=== PATIENT | female | born 1985 | race Two or more races ===

== ENCOUNTER 2016-09-04 06:31 | Inpatient (IN) | payer OTHER ==
[~2016-09-04] VITALS: Ht 149.9 cm; Wt 56.7 kg
[2016-09-04] MEDS ORDERED: IBUPROFEN 800 MG TABLET. PO PRN (09:30)
[2016-09-04] MEDS ORDERED: 0.9 % SODIUM CHLORIDE 10 ML DISP.SYRIN. IV PRN ×2 (09:30→17:30)
[2016-09-04] MEDS ORDERED: BUPIVACAINE MPF 0.25% 10 ML VIAL. IJ ONE (09:30)
[2016-09-04] MEDS ORDERED: TERBUTALINE 1 MG/ML VIAL. SQ PRN (09:30)
[2016-09-04] MEDS ORDERED: LIDOCAINE 1% PF 30 ML VIAL. INJ PRN (09:30)
[2016-09-04] MEDS ORDERED: FENTANYL PF 100 MCG/2 ML VIAL. IV PRN (09:30)
[2016-09-04] MEDS ORDERED: OXYTOCIN 30 UNIT/500 ML PREMIX 500 ML IV PRN ×3 (09:30→17:30)
[2016-09-04 10:02] LABS: BASO % 0 % (0-3); EOS % 3 % (0-3); HEMATOCRIT 31.7 % (36.0-47.0); HEMOGLOBIN 10.2 g/dL (12.0-15.5); LYMPH # 2.1 x10^3/uL (1.0-4.8); LYMPH % 26 % (24-48); MEAN CORPUSCULAR HEMOGLOBIN 24 pg (25-35); MEAN CORPUSCULAR HGB CONC 32 g/dL (31-37); MEAN CORPUSCULAR VOLUME 76 fL (79-100); MONO % 8 % (0-9); NEUT % 64 % (31-73); PLATELET COUNT 241 x10^3/uL (140-400); RED BLOOD COUNT 4.19 x10^6/uL (3.50-5.40); RED CELL DISTRIBUTION WIDTH 13.2 % (11.5-14.5); WHITE BLOOD COUNT 8.2 x10^3/uL (4.0-11.0)
[2016-09-04 10:17] LABS: ALBUMIN 2.5 g/dL (3.4-5.0); ALBUMIN/GLOBULIN RATIO 0.6 (1.0-1.7); CALCIUM 8.6 mg/dL (8.5-10.1); CREATININE 0.8 mg/dL (0.6-1.0); DIRECT BILIRUBIN 0.1 mg/dL (0.0-0.2); GFR 82.6; POTASSIUM 4.1 mmol/L (3.5-5.1); TOTAL BILIRUBIN 0.4 mg/dL (0.2-1.0); URIC ACID 5.7 mg/dL (2.6-6.0)
[2016-09-04] MEDS: IV RINGERS,LACTATED 1000ML 1,000 ML IV SCH ×2 (13:16→17:23)
[2016-09-04] MEDS ORDERED: ROPIVacaine 0.2% IN 0.9%NACL PF 40 MG/20 ML DISP.SYRIN. ONE ×2 (13:35→14:30)
[2016-09-04] MEDS ORDERED: L&D EPIDURAL CASSETTE 100 ML EP ONE (13:35)
[2016-09-04] MEDS ORDERED: NALOXONE 0.4 MG/ML VIAL. IV PRN (14:45)
[2016-09-04] MEDS ORDERED: L&D EPIDURAL CASSETTE 100 ML EP PRN (14:45)
[2016-09-04] MEDS ORDERED: ROPIVacaine 0.2% PF 10 ML VIAL. EPI ONE (14:45)
[2016-09-04] MEDS ORDERED: ONDANSETRON PF 4 MG/2 ML VIAL. IV PRN (14:45)
[2016-09-04] MEDS ORDERED: EPHEDRINE PF IN SALINE 50 MG/5 ML DISP.SYRIN. IV PRN (14:45)
[2016-09-04] MEDS ORDERED: FENTANYL PF 100 MCG/2 ML VIAL. EPI ONE (14:45)
[2016-09-04] MEDS ORDERED: HYDROCODONE/APAP 5/325MG TABLET. PO PRN (17:30)
[2016-09-04] MEDS ORDERED: ZOLPIDEM 5 MG TABLET. PO PRN (17:30)
[2016-09-04] MEDS ORDERED: MAG HYDROX/ALUMINUM HYD/SIMETH 30 ML ORAL.SUSP PO PRN (17:30)
[2016-09-04] MEDS ORDERED: DIPHENHYDRAMINE HCL 25 MG CAPSULE PO PRN (17:30)
[2016-09-04] MEDS ORDERED: PHENYLEPH/MINERAL OIL/PETROLAT RECTAL OINTMENT 28GM TUBE. RC PRN (17:30)
[2016-09-04] MEDS ORDERED: HYDROCORTISONE 1% TOPICAL OINTMENT 30GM TUBE. TP PRN (17:30)
[2016-09-04] MEDS ORDERED: ACETAMINOPHEN 325 MG TABLET. PO PRN ×2 (17:30→17:45)
[2016-09-04] MEDS ORDERED: MAGNESIUM HYDROXIDE 2,400 MG/30 ML ORAL.SUSP. PO PRN (17:30)
[2016-09-04] MEDS ORDERED: BENZOCAINE 20% TOPICAL AEROSOL SPRAY 57GM CAN. TP PRN (17:30)
[2016-09-04] MEDS ORDERED: SIMETHICONE 80 MG TAB.CHEW PO PRN (17:30)
--- NOTE | 2016-09-04 17:59 | PDOC1 ---
OB - History Hx of Present Ultrasounds: No ultrasounds Obstetrical Complications: None Medical Complications: None Past Family/Social History * Past Medical, Surgical, Family and Obstetric Histories reviewed from chart. Blood Type: O+ Rubella: Immune RPR/VDRL: Negative GBS Status: Negative HBsAG: Negative OB - Chief Complaint & HPI Date of Admission: Date of Admission: Sep 04, 2016 at 06:31 Chief Complaint/History : 3 Para: 2 EDC: Sep 04, 2016 Reason for admission: induction of labor Admission Nurse Assessment Rev: Yes Problems: OB - Admission Exam Physical Exam Vitals: VS - Last 72 Hours, by Label Date Time Temp Pulse Resp B/P Pulse Ox O2 Delivery O2 Flow Rate FiO2 09/04/16 16:13 18 100 HEENT: Normal, Nasal Mucosa Normal, Oropharynx Normal, Moist Membranes, Fontanelles Normal Heart: Regular Rate Lungs: Clear, Equal Abdomen: Gravid Extremities: Normal Pulses, No tenderness or swelling Reflexes: Normal Cervical Dilatation: 1cm Effacement: 50% Station: Ballotable Membranes: Intact Amniotic Fluid: Clear Heart Rate: Normal Accelerations: Accelerations Present Contractions on Admission: >10 Minutes Apart Intensity: Mild Assessment/Plan Assessment/Plan TIUP Induction ACSVD ANGELO DELATORRE MD Sep 04, 2016 17:59
--- NOTE | 2016-09-04 18:45 | PDOC ---
VAGINAL DELIVERY DATE DATE: 09/04/16 TIME: 18:42 : 3 Para: 2 EDC: Sep 09, 2016 VAGINAL DELIVERY: VTX PLACENTA: Spontaneous SEX: Male WEIGHT 7/7 Nuchal Cord: Yes, Times 1, Loose Amniotic Fluid: Clear PAIN: Epidural EPISIOTOMY: No EXTENSION: No EBL 400cc COMPLICATIONS None CONDITION Stable Signs of Intrauterine Infectio: None Shoulder Dystocia: No DIAGNOSIS TIUP del Problems: ANGELO DELATORRE MD Sep 04, 2016 18:45
[2016-09-04] MEDS: IBUPROFEN 800 MG TABLET. PO SCH ×2 (21:35→22:00)
[2016-09-04 22:45] VITALS: BP 113/75
[2016-09-05] MEDS: IV RINGERS,LACTATED 1000ML 1,000 ML IV SCH (01:23)
[2016-09-05 05:25] VITALS: BP 115/67
[2016-09-05 05:59] VITALS: BP 115/67
[2016-09-05] MEDS: IBUPROFEN 800 MG TABLET. PO SCH ×3 (06:00→19:13)
[2016-09-05] MEDS: FERROUS SULFATE 325 MG TABLET. PO SCH ×2 (09:12→19:13)
[2016-09-05 10:15] VITALS: BP 130/80
--- NOTE | 2016-09-05 13:36 | PDOC ---
OB Progress Note Date of Service 09/05/16 Time of Evaluation 1335 Problem List Problems Medical Problems: (1) Status: Acute Notes Pt. feeling well. Pain controlled. Bottle feeding. Lochia minimal. Lab Laboratory Tests Test 09/04/16 09:30 09/05/16 03:58 White Blood Count 8.2x10^3/uL (4.0-11.0) Red Blood Count 4.19x10^6/uL (3.50-5.40) Hemoglobin 10.2g/dL (12.0-15.5) Hematocrit 31.7% (36.0-47.0) 26.3% (36.0-47.0) Mean Corpuscular Volume 76fL (79-100) Mean Corpuscular Hemoglobin 24pg (25-35) Mean Corpuscular Hemoglobin Concent 32g/dL (31-37) Red Cell Distribution Width 13.2% (11.5-14.5) Platelet Count 241x10^3/uL (140-400) Neutrophils (%) (Auto) 64% (31-73) Lymphocytes (%) (Auto) 26% (24-48) Monocytes (%) (Auto) 8% (0-9) Eosinophils (%) (Auto) 3% (0-3) Basophils (%) (Auto) 0% (0-3) Neutrophils # (Auto) 5.2x10^3uL (1.8-7.7) Lymphocytes # (Auto) 2.1x10^3/uL (1.0-4.8) Monocytes # (Auto) 0.6x10^3/uL (0.0-1.1) Eosinophils # (Auto) 0.2x10^3/uL (0.0-0.7) Basophils # (Auto) 0.0x10^3/uL (0.0-0.2) Sodium Level 140mmol/L (136-145) Potassium Level 4.1mmol/L (3.5-5.1) Chloride Level 106mmol/L (98-107) Carbon Dioxide Level 22mmol/L (21-32) Anion Gap 12 (6-14) Blood Urea Nitrogen 8mg/dL (7-20) Creatinine 0.8mg/dL (0.6-1.0) Estimated GFR (Cockcroft-Gault) 82.6 BUN/Creatinine Ratio 10 (6-20) Glucose Level 82mg/dL (70-99) Uric Acid 5.7mg/dL (2.6-6.0) Calcium Level 8.6mg/dL (8.5-10.1) Total Bilirubin 0.4mg/dL (0.2-1.0) Direct Bilirubin 0.1mg/dL (0.0-0.2) Aspartate Amino Transf (AST/SGOT) 24U/L (15-37) Alanine Aminotransferase (ALT/SGPT) 18U/L (14-59) Alkaline Phosphatase 276U/L (46-116) Lactate Dehydrogenase 168U/L (81-234) Total Protein 7.0g/dL (6.4-8.2) Albumin 2.5g/dL (3.4-5.0) Albumin/Globulin Ratio 0.6 (1.0-1.7) RPR Titer Additional Testing Non reactive (Non Reactive) Laboratory Tests Test 09/05/16 03:58 Hematocrit 26.3% (36.0-47.0) Medications Current Medications Sodium Chloride 3 ml 3 ml QSHIFT PRN IV AFTER MEDS AND BLOOD DRAWS; Start 09/04 at 09:30 Lactated Ringer's (Iv Lactated Ringers) 1,000 ml @ 125 mls/hr Q8H IV Last administered on 09/04/16 13:16; Start 09/04/16 at 09:23; Stop 09/05/16 at 04:30 ; Status DC Fentanyl Citrate (Fentanyl 2ml Vial) 100 mcg PRN Q20MIN PRN IV Labor pain; Start 09/04/16 at 09:30 Terbutaline Sulfate (Brethine) 0.25 mg 1X PRN PRN SQ SEE COMMENTS; Start at 09:30; Stop 09/05/16 at 09:29; Status DC Lidocaine HCl 30 ml 30 ml 1X PRN PRN INJ SEE COMMENTS; Start 09/04/16 at 09:30 ; Stop 09/06/16 at 09:29 Oxytocin/Sodium Chloride 500 ml @ 0 mls/hr CONT PRN IV SEE I/O RECORD Last administered on 09/04/16 13:16; Start 09/04/16 at 09:30 Oxytocin/Sodium Chloride (Oxytocin Premix Infusion) 500 ml @ 0 mls/hr CONT PRN PRN IV Post delivery bleeding; Start 09/04/16 at 09:30 Ibuprofen (Motrin) 800 mg PRN Q6HRS PRN PO PAIN; Start 09/04/16 at 09:30 Bupivacaine HCl 10 ml 10 ml 1X ONCE IJ ; Start 09/04/16 at 09:30; Stop at 09:58; Status DC Ropivacaine/ Fentanyl/NS (Txrdyjow-Oumgo-AB 3 Mcg-0.1%) 100 ml @ As Directed STK-MED ONCE EP ; Start 09/04/16 at 13:35; Stop 09/04/16 at 13:36; Status DC Ropivacaine 40 mg STK-MED ONCE .ROUTE ; Start 09/04/16 at 13:35; Stop 09/04/16 at 13:36; Status DC Ephedrine Sulfate 10 mg PRN Q2MIN PRN IV IF SBP<90; Start 09/04/16 at 14:45 Naloxone HCl (Narcan) 0.04 mg PRN Q1MIN PRN IV SEE COMMENTS; Start 09/04/16 at 14:45 Fentanyl Citrate 100 mcg 100 mcg 1X ONCE EPI ; Start 09/04/16 at 14:45; Stop at 14:46; Status DC Ropivacaine/ Fentanyl/NS (Odenpqso-Pamrv-UX 3 Mcg-0.1%) 100 ml @ 14 mls/hr CONT PRN EP PAIN Last administered on 09/04/16t 16:13; Start 09/04/16 at 14:45 Ondansetron HCl (Zofran) 4 mg PRN Q6HRS PRN IV NAUSEA/VOMITING; Start 09/04/16 at 14:45 Ropivacaine (Naropin 0.2%) 20 ml 1X ONCE EPI ; Start 09/04/16 at 14:45; Stop at 14:46; Status DC Sodium Chloride 10 ml 10 ml QSHIFT PRN IV AFTER MEDS AND BLOOD DRAWS; Start 03/13 at 17:30 Oxytocin/Sodium Chloride (Oxytocin Premix Infusion) 500 ml @ 62.5 mls/hr CONT PRN IV SEE I/O RECORD; Start 09/04/16 at 17:30; Stop 09/05/16 at 01:29; Status DC Acetaminophen (Tylenol) 650 mg PRN Q6HRS PRN PO MILD PAIN / TEMP; Start at 17:30; Stop 09/04/16 at 17:42; Status DC Ibuprofen (Motrin) 800 mg Q8HRS PO Last administered on 09/05/16 09:12; Start 09/04/16 at 17:00 Magnesium Hydroxide (Milk Of Magnesia) 2,400 mg PRN DAILY PRN PO CONSTIPATION; Start 09/04/16 at 17:30 Al Hydroxide/Mg Hydroxide (Mylanta Plus Xs) 30 ml PRN Q4HRS PRN PO HEARTBURN / GAS; Start 09/04/16 at 17:30 Simethicone (Gas-X) 80 mg PRN AFTMEALHC PRN PO GAS / BLOATING; Start 09/04/16 at 17:30 Diphenhydramine HCl (Benadryl) 25 mg PRN Q6HRS PRN PO ITCHING; Start 09/04/16 at 17:30 Benzocaine (Americaine) 1 spray PRN QID PRN TP TOPICAL PAIN Last administered on 09/04/16 21:36; Start 09/04/16 at 17:30 Phenyleph/Shark Oil/Min Oil/Petrol (Preparation H) 1 angel PRN QID PRN RC RECTAL PAIN; Start 09/04/16 at 17:30 Hydrocortisone (Cortaid) 1 angel PRN QID PRN TP RECTAL PAIN; Start 09/04/16 at 17 :30 Ferrous Sulfate (Feosol) 325 mg BIDWMEALS PO Last administered on 09/05/16 09: 12; Start 09/05/16 at 08:00 Zolpidem Tartrate (Ambien) 5 mg PRN QHS PRN PO INSOMNIA, MAY REPEAT X1; Start 09/04/16 at 17:30 Info (Do NOT chart on this placeholder) 1 ea 1X PRN PRN MC SEE COMMENTS; Start 09/04/16 at 17:30 Acetaminophen/ Hydrocodone Bitart (Lortab 5/325) 1 tab PRN Q4HRS PRN PO PAIN; Start 09/04/16 at 17:30 Acetaminophen (Tylenol) 650 mg PRN Q6HRS PRN PO MILD PAIN / TEMP; Start at 17:45 Ropivacaine 40 mg STK-MED ONCE .ROUTE ; Start 09/04/16 at 14:30; Stop 09/05/16 at 09:06; Status DC Exam Abd: soft, non tender, fundus firm Assessment PPD#1 s/p Plan of Care: Continue current Tx, Mgmt JODI HARPER Jr, MD Sep 05, 2016 13:36
[2016-09-05 14:15] VITALS: BP 134/87
[2016-09-05 17:16] VITALS: BP 130/86
[2016-09-05 23:08] VITALS: BP 120/77
[2016-09-06 05:59] VITALS: BP 126/88
[2016-09-06 10:28] VITALS: BP 134/85
--- NOTE | 2016-09-06 10:53 | PDOC3 ---
OB DISCHARGE SUMMARY DATE OF ADMISSION: 09/04/16 DATE OF DISCHARGE: 09/06/16 REASON FOR ADMISSION: Induction of labor PROCEDURES: None INTRAPARTUM PROCEDURES: Spontanous Vag Deliv PROCEDURES: None OPERATIONS: None PROBLEM LIST AT DISCHARGE Problems Medical Problems: (1) Status: Acute DISCHARGE DIAGNOSIS: Term Delivered DISCHARGE INFORMATION: Activity, Diet HOSPITAL COURSE Unremarkable CONDITION AT DISCHARGE Stable ANGELO DELATORRE MD Sep 06, 2016 10:53
[2016-09-06] MEDS: FERROUS SULFATE 325 MG TABLET. PO SCH (11:56)
[2016-09-06] MEDS: IBUPROFEN 800 MG TABLET. PO SCH (11:57)
[2016-09-06 14:55] VITALS: BP 114/73
[2016-09-06] MEDS ORDERED: IBUP200T43 PO (15:40)
== END 2016-09-06 15:00 | disposition home or self-care (01) | DRG 775 ==
LOC: 3 SO LND 06:31
PROVIDERS: ADMIT Specialist; ATTEND Specialist
PROC: 10E0XZZ Delivery of Products of Conception, External Approach (ICD-10-PCS; principal; 2016-09-05)
PROC: 3E0S3CZ (ICD-10-PCS; 2016-09-05)
PROC: 00HU33Z Insertion of Infusion Device into Spinal Canal, Percutaneous Approach (ICD-10-PCS; 2016-09-05)
DX: O80 Encounter for full-term uncomplicated delivery (principal); Z37.0 Single live birth; Z3A.00 Weeks of gestation of pregnancy not specified
CPT/HCPCS: 36415; 80053; 82248; 83615; 84550; 85014; 85027; 86593; 86850; 86900; 86901; J2590; J2795; J7120

== ENCOUNTER → 2017-08-28 | Outpatient (CLI) | payer MEDICAID, OTHER | END | disposition home or self-care (01) | LOC: ECHO 13:31 | DX: R01.1 Cardiac murmur, unspecified (principal) | CPT/HCPCS: 93306 ==

== ENCOUNTER 2017-11-18 00:09 | Emergency (ER) | payer MEDICAID ==
[2017-11-18 00:47] LABS: ADD MAN DIFF? NO
[2017-11-18] MEDS: IV NORMAL SALINE 1000ML BAG 1,000 ML IV (00:48)
[2017-11-18 00:49] LABS: BASO % 0 % (0-3); EOS # 0.2 x10^3/uL (0.0-0.7); EOS % 3 % (0-3); HEMATOCRIT 30.9 % (36.0-47.0); HEMOGLOBIN 10.5 g/dL (12.0-15.5); LYMPH % 36 % (24-48); MEAN CORPUSCULAR HEMOGLOBIN 25 pg (25-35); MEAN CORPUSCULAR HGB CONC 34 g/dL (31-37); MEAN CORPUSCULAR VOLUME 73 fL (79-100); MONO # 0.6 x10^3/uL (0.0-1.1); MONO % 7 % (0-9); NEUT # 4.4 x10^3uL (1.8-7.7); NEUT % 54 % (31-73); PLATELET COUNT 224 x10^3/uL (140-400); RED BLOOD COUNT 4.26 x10^6/uL (3.50-5.40); RED CELL DISTRIBUTION WIDTH 14.5 % (11.5-14.5); WHITE BLOOD COUNT 8.1 x10^3/uL (4.0-11.0)
[2017-11-18 00:49] LABS: URINE HCG POC HCG NEGATIVE (Negative)
[2017-11-18 01:06] LABS: ANION GAP 9 (6-14); BLOOD UREA NITROGEN 11 mg/dL (7-20); BUN/CREATININE RATIO 14 (6-20); CALCIUM 8.4 mg/dL (8.5-10.1); CARBON DIOXIDE 22 mmol/L (21-32); CHLORIDE 108 mmol/L (98-107); CREATININE 0.8 mg/dL (0.6-1.0); GFR 82.1; GLUCOSE 160 mg/dL (70-99); POTASSIUM 3.4 mmol/L (3.5-5.1); SODIUM 139 mmol/L (136-145)
[2017-11-18 01:12] LABS: ALBUMIN 3.5 g/dL (3.4-5.0); ALBUMIN/GLOBULIN RATIO 0.7 (1.0-1.7); ALK PHOS 105 U/L (46-116); ALT (SGPT) 27 U/L (14-59); TOTAL BILIRUBIN 0.2 mg/dL (0.2-1.0); TOTAL PROTEIN 8.2 g/dL (6.4-8.2)
[2017-11-18] MEDS: hydrALAZINE 20 MG/ML VIAL. IVP (01:36)
[2017-11-18 02:15] LABS: AST (SGOT) 29 U/L (15-37)
[2017-11-18] MEDS: diphenhydrAMINE 50 MG/ML VIAL IVP (03:22)
[2017-11-18] MEDS: KETOROLAC 30 MG/ML INJ. IV (03:22)
== END 2017-11-18 03:20 | disposition home or self-care (01) ==
LOC: ER 00:09
DX: R42 Dizziness and giddiness (principal); R51 Headache; I10 Essential (primary) hypertension
CPT/HCPCS: 36415; 70450; 80053; 81025; 85025; 93005; 96361; 96374; 99285-25; J0360; J7030

== ENCOUNTER 2018-07-17 17:44 | Emergency (ER) | payer MEDICAID, OTHER ==
[~2018-07-17] VITALS: Ht 152.4 cm; Wt 53.1 kg
[~2018-07-17 17:44] MED LIST: IBUP200T44 PO
[2018-07-17 18:00] VITALS: BP 160/78
[2018-07-17 19:06] LABS: BILIRUBIN,URINE NEGATIVE (NEG); CLARITY,URINE CLEAR; COLOR,URINE YELLOW; NITRITE,URINE NEGATIVE (NEG); PH,URINE 5.5; PROTEIN,URINE NEGATIVE (NEG-TRACE); UROBILINOGEN,URINE 0.2 mg/dL (0.2 mg/dL)
[2018-07-17 19:11] LABS: BACTERIA,URINE FEW /HPF (0-FEW); RBC,URINE 0 /HPF (0-2); SQUAMOUS EPITHELIAL CELL,UR MOD /LPF
--- NOTE | 2018-07-17 19:48 | PHYS DOC ---
Past Medical History Past Medical History: No Pertinent History Past Surgical History: No Surgical History Alcohol Use: None Drug Use: None Adult General Chief Complaint Chief Complaint: BACK PAIN OR INJURY HPI HPI Patient is a 33 year old female who presents to the ER with complaints of right low back pain that increases with movement for the last 2 days. Pt states that she slipped and fell on Sunday but the pain did not begin until Sunday. Pt states that the pain increases with movement. She denies any radiation of the pain to legs. She denies any numbness or tingling in abdomen or lower extremities. She denies any loss of bowel or bladder control. She rates the pain a 10/10 on the pain scale, it is alleviated by nothing and exacerbated by movement. Pt only speaks Faroese and the cytopathologist line was used to converse with patient. 1946- Pt states to prior authorization technician that her abdomen feels like it is burning and she has had a foul smelling white vaginal discharge. Per patient she has had intermittent suprapubic burning for the last year and foul smelling vaginal discharge for 5-6 months. Review of Systems Review of Systems Constitutional: Denies fever or chills [] Respiratory: shortness of breath [] Cardiovascular: No additional information not addressed in HPI [] GI: See HPI : Denies dysuria. increased urinary frequency, or hematuria; see HPI Musculoskeletal: See HPI Neuro: Denies numbness, tingling, or weakness of extremities. Current Medications Current Medications Current Medications Medications (Trade) Dose Ordered Sig/Taty Start Time Stop Time Status Last Admin Dose Admin Azithromycin (Zithromax) 1,000 mg 1X ONCE 07/17/18 20:45 07/17/18 20:46 DC Ceftriaxone Sodium (Rocephin Im) 250 mg 1X ONCE 07/17/18 20:45 07/17/18 20:46 DC Allergies Allergies Allergies Coded Allergies Type Severity Reaction Last Updated Verified No Known Drug Allergies 09/04/16 No Physical Exam Physical Exam Constitutional: Well developed, well nourished, no acute distress, non-toxic appearance. [] HENT: Normocephalic, atraumatic, bilateral external ears normal, oropharynx moist, nose normal. [] Eyes: PERRLA, conjunctiva normal, no discharge. [] Neck: Normal range of motion, no stridor. [] Lungs & Thorax: Respirations even and unlabored, no retractions Pelvic Exam: Surveyor Helper present Yvrose ZIMMER Abdomen: Soft Nontender External Genitalia: Normal Skin Speculum: Normal vaginal mucosa, thick white vaginal discharge, normal cervical discharge, cervix friable Bimanual: No adnexal masses or tenderness, No CMT Skin: Warm, dry, no erythema, no rash. [] Back: No bony tenderness, lumbar paraspinal TTP on the right, no CVA tenderness. [] Extremities: No tenderness, no cyanosis, ROM intact Neurologic: Alert and oriented X 3, normal motor function, normal sensory function, no focal deficits noted. [] Psychologic: Affect normal, judgement normal, mood normal. [] Current Patient Data Vital Signs Vital Signs Date Time Temp Pulse Resp B/P (MAP) Pulse Ox O2 Delivery O2 Flow Rate FiO2 07/17/18 18:00 99.8 88 16 160/78 (105) 99 Room Air 99.8 Lab Values Laboratory Tests Test 07/17/18 18:57 07/17/18 18:58 Urine Collection Type Unknown Urine Color Yellow Urine Clarity Clear Urine pH 5.5 Urine Specific [place] <=1.005 Urine Protein Negative mg/dL (NEG-TRACE) Urine Glucose (UA) Negative mg/dL (NEG) Urine Ketones (Stick) Negative mg/dL (NEG) Urine Blood Negative (NEG) Urine Nitrite Negative (NEG) Urine Bilirubin Negative (NEG) Urine Urobilinogen Dipstick 0.2 mg/dL (0.2 mg/dL) Urine Leukocyte Esterase Negative (NEG) Urine RBC 0 /HPF (0-2) Urine WBC 1-4 /HPF (0-4) Urine Squamous Epithelial Cells Mod /LPF Urine Bacteria Few /HPF (0-FEW) Urine Mucus Slight /LPF POC Urine HCG, Qualitative Hcg negative (Negative) Microbiology 07/17/18 Wet Prep - Final, Complete EKG EKG [] Radiology/Procedures Radiology/Procedures PROCEDURE: LUMBAR SPINE 2-3V Exam : Lumbar spine July 17, 2018. Comparison: None. Indication: Right-sided lumbar pain. TECHNIQUE: 3 views of the lumbar spine are provided. Findings: There is no acute fracture or malalignment. There are five lumbar type vertebral bodies. The alignment is within normal limits. Mild anterior marginal osteophytosis is noted at L2-L3 and L3-L4. The vertebral bodies demonstrate normal height. The intervertebral disc spaces are well maintained. Impression: No evidence for acute fracture or malalignment of the lumbar spine. [] Course & Med Decision Making Course & Med Decision Making Pertinent Labs and Imaging studies reviewed. (See chart for details) [] Dragon Disclaimer Dragon Disclaimer This electronic medical record was generated, in whole or in part, using a voice recognition dictation system. Departure Departure Impression: Primary Impression: Low back pain Additional Impression: Bacterial vaginosis Disposition: HOME, SELF-CARE Condition: STABLE Referrals: ALETHA SETH MD (PCP) Patient Instructions: Back Pain, Adult, [id number], Bacterial Vaginosis, Easy -to-Read Additional Instructions: Fill the prescriptions and use them as directed. Activity as tolerated. Follow- up with your primary care doctor if her symptoms persist, return to the ER if her symptoms worsen. Scripts Naproxen (NAPROXEN) 375 Mg Tablet 375 MG PO BID PRN for PAIN for 10 Days, #20 TAB 0 Refills Prov: MARIAN MATA APRN 07/17/18 Cyclobenzaprine Hcl (CYCLOBENZAPRINE HCL) 10 Mg Tablet 1 TAB PO TID PRN for PAIN for 10 Days, #30 TAB 0 Refills Prov: MARIAN MATA APRN 07/17/18 Metronidazole (FLAGYL) 500 Mg Tablet 1 TAB PO BID, #14 TAB Prov: MARIAN MATA APRN 07/17/18 Problem Qualifiers Primary Impression: Low back pain Chronicity: acute Back pain laterality: right Sciatica presence: without sciatica Qualified Codes: M54.5 - Low back pain MARIAN MATA APRN Jul 17, 2018 19:47
[2018-07-17] MEDS ORDERED: CYCL10TA2 PO (20:28)
[2018-07-17] MEDS ORDERED: METR500T PO (20:28)
[2018-07-17] MEDS ORDERED: NAPR-695 PO (20:28)
--- NOTE | 2018-07-17 20:33 | RAD ---
Exam : Lumbar spine July 17, 2018. Comparison: None. Indication: Right-sided lumbar pain. TECHNIQUE: 3 views of the lumbar spine are provided. Findings: There is no acute fracture or malalignment. There are five lumbar type vertebral bodies. The alignment is within normal limits. Mild anterior marginal osteophytosis is noted at L2-L3 and L3-L4. The vertebral bodies demonstrate normal height. The intervertebral disc spaces are well maintained. Impression: No evidence for acute fracture or malalignment of the lumbar spine. Electronically signed by: Velma Valadez MD (07/17/2018 8:30 PM) [facility]
[2018-07-17] MEDS ORDERED: cefTRIAXone IM 250 MG VIAL IM ONE (20:45)
[2018-07-17] MEDS ORDERED: AZITHROMYCIN 250 MG TABLET. PO ONE (20:45)
[2018-07-19 13:20] LABS: GC PROBE Negative (Negative)
== END 2018-07-17 21:17 | disposition home or self-care (01) ==
LOC: ER 17:44
DX: N76.0 Acute vaginitis (principal); B96.89 Other specified bacterial agents as the cause of diseases classified elsewhere; M54.5 Low back pain
CPT/HCPCS: 72100; 81001; 81025; 87491; 87591; 96372; 99284; J0696; Q0111; Q0144

== ENCOUNTER 2019-07-22 16:27 | Emergency (ER) | payer OTHER ==
[~2019-07-22] VITALS: Ht 160 cm; Wt 54.5 kg
[~2019-07-22 16:27] MED LIST changes: +CYCL10TA2 PO; +METR500T PO; +NAPR-695 PO
[2019-07-22] MEDS ORDERED: DEXAMETHASONE 4 MG TABLET PO ONE (19:00)
[2019-07-22] MEDS ORDERED: FLUT9.9S NS (19:05)
[2019-07-22] MEDS ORDERED: CETI10TA24 PO (19:05)
--- NOTE | 2019-07-22 19:05 | PHYS DOC ---
Past Medical History Past Medical History: No Pertinent History (TARA GOMEZ APRN) Past Surgical History: No Surgical History (TARA GOMEZ APRN) Smoking Status: Never Smoker Alcohol Use: None Drug Use: None (TARA GOMEZ APRN) Attending Signature I have participated in the care of this patient and I have reviewed and agree with all pertinent clinical information above including history, exam, and recommendations. (TIFFANY WILSON MD) Adult General Chief Complaint Chief Complaint: OTHER COMPLAINTS HPI HPI Patient is a 34 year old female who presents with states she has had a sore throat, sneezing, congestion, cough on and off since March. Patient states her throat feels more sore than usual. She rates her pain a 6 out of 10. She den ies taking any medications to help her symptoms. Patient denies chest pain, shortness of air, fever, nausea, vomiting, abdominal pain, numbness or tingling, vision changes, headache, dizziness, diarrhea. (TARA GOMEZ APRN) Review of Systems Review of Systems HENT: nasal congestion or sore throat [] Respiratory: cough or denies shortness of breath [] All other systems were reviewed and found to be within normal limits, except as documented in this note. (TARA GOMEZ APRN) Current Medications Current Medications Current Medications Medications (Trade) Dose Ordered Sig/Taty Start Time Stop Time Status Last Admin Dose Admin Dexamethasone (Decadron) 10 mg 1X ONCE 07/22/19 19:00 07/22/19 19:01 DC 07/22/19 19:33 10 MG (TIFFANY WILSON MD) Allergies Allergies Allergies Coded Allergies Type Severity Reaction Last Updated Verified No Known Drug Allergies 09/04/16 No (TIFFANY WILSON MD) Physical Exam Physical Exam Constitutional: Well developed, well nourished, no acute distress, non-toxic appearance. [] HENT: Normocephalic, atraumatic, bilateral external ears normal, oropharynx moist, no oral exudates, nose normal. Throat pink with exudates on left tonsil. [] Eyes: PERRLA, EOMI, conjunctiva normal, no discharge. [] Neck: Normal range of motion, no tenderness, supple, no stridor. [] Cardiovascular:Heart rate regular rhythm, no murmur [] Lungs & Thorax: Bilateral breath sounds clear to auscultation [] Abdomen: Bowel sounds normal, soft, no tenderness, no masses, no pulsatile masses. [] Skin: Warm, dry, no erythema, no rash. [] Back: No tenderness, no CVA tenderness. [] Extremities: No tenderness, no cyanosis, no clubbing, ROM intact, no edema. [] Neurologic: Alert and oriented X 3, normal motor function, normal sensory function, no focal deficits noted. [] Psychologic: Affect normal, judgement normal, mood normal. [] (TARA GOMEZ APRN) Current Patient Data Vital Signs Vital Signs Date Time Temp Pulse Resp B/P (MAP) Pulse Ox O2 Delivery O2 Flow Rate FiO2 07/22/19 19:16 98.5 82 18 160/78 (105) 99 Room Air 98.5 (TIFFANY WILSON MD) EKG EKG [] (TARA GOMZE APRN) Radiology/Procedures Radiology/Procedures [] (TARA GOMEZ APRN) Course & Med Decision Making Course & Med Decision Making Pertinent Labs and Imaging studies reviewed. (See chart for details) Throat is pink but looks to have exudates on the left tonsil. Lungs are clear to auscultation lobes. Vital signs within normal limits. Bilateral tympanic is white. Speaks in full clear sentences. Ambulatory with steady gait. Afebrile. Denies any body aches. No past medical history. Skin pink warm and dry. Alert and oriented. Rapid Strep is negative. Since I saw exudate on the left tonsil. I will go ahead and treat the patient. [] (TARA GOMEZ APRN) Dragon Disclaimer Dragon Disclaimer This electronic medical record was generated, in whole or in part, using a voice recognition dictation system. (TARA GOMEZ APRN) Departure Departure Impression: Primary Impression: Sore throat Additional Impressions: Nasal congestion Sneezing Disposition: 01 HOME, SELF-CARE Condition: STABLE Referrals: ALETHA SETH MD (PCP) Patient Instructions: Strep Throat Additional Instructions: Follow up with your primary care provider. Use medications as prescribed. Scripts Amoxicillin (AMOXICILLIN) 500 Mg Capsule 1 CAP PO BID, #20 CAP Prov: TARA GOMEZ APRN 07/22/19 Cetirizine Hcl (ZYRTEC) 10 Mg Tablet 1 TAB PO DAILY, #30 TAB 3 Refills Prov: TARA GOMEZ APRN 07/22/19 Fluticasone Propionate (Flonase Allergy Relief) 9.9 Ml [place].susp 2 SPRAYS NS DAILY, #1 BOTTLE Prov: TARA GOMEZ APRN 07/22/19 Problem Qualifiers TARA GOMEZ APRN Jul 22, 2019 19:05 TIFFANY WILSON MD Jul 22, 2019 20:06
[2019-07-22] MEDS ORDERED: AMOX500C PO (19:09)
[2019-07-22 19:16] VITALS: BP 160/78
== END 2019-07-22 19:38 | disposition home or self-care (01) ==
LOC: ER 16:27
DX: J02.9 Acute pharyngitis, unspecified (principal); R09.81 Nasal congestion; R06.7 Sneezing
CPT/HCPCS: 87070; 87880; 99283; J8540